=== PATIENT | female | born 1965 | race Caucasian/White ===

== ENCOUNTER → 2016-07-14 | Outpatient (CLI) | payer OTHER, BC ==
--- NOTE | 2016-07-14 16:41 | MR ---
EXAM DATE: 07/14/16 PATIENT'S AGE: 51 Patient: BUBBA ARTEAGA Facility: [place], [place] Site . Site : [id number] Study: MRI Spine Lumbar [id number]/[id number] 3:39:43 PM Ordering Physician: Dakotah Pavon Final Report: INDICATION: 51-year-old female with low back pain. Back pain right leg. TECHNIQUE: Sagittal and axial T1, sagittal axial T2 and sagittal STIR images were obtained. FINDINGS: There is grade 1 degenerative anterolisthesis at the L4-5 level. Alignment at other lumbar levels is normal. No compression fractures. No paraspinal mass. The distal spinal cord the conus medullaris appear normal. The conus terminates normally at the upper L2 level. At L5-S1 degenerative disk desiccation mild annular bulge and mild facet arthropathy without stenosis of the spinal canal or neural foramen. At L4-5 there is grade 1 spondylolisthesis. There is bilateral facet arthropathy with anterior facet spurs thickening of ligamentum flavum and edema within the facets and pedicles. There is a synovial cyst on the right that contributes to narrowing of the spinal canal moderate central stenosis and impingement of the right L5 nerve root in the lateral recess. Mild bilateral neural foraminal narrowing. At L3-4 degenerative disc desiccation mild annular bulge and small right foraminal disc protrusion. Mild to moderate bilateral facet arthropathy. No stenosis the spinal canal. Mild to moderate right-sided foraminal narrowing. No disc herniation or stenosis at L2-3, L1-2, T12-L1 or at T11-12. At T10-11 degenerative disk desiccation. For is minor posterior disc bulge without stenosis. IMPRESSION: 1. At L4-5 there is grade 1 spondylolisthesis with advanced facet arthropathy, moderate central stenosis and impingement of the right L5 nerve root in the lateral recess. A 4 mm synovial cyst on the right contributes to right L5 nerve impingement. 2. At L3-4 a shallow broad-based and repeat small right foraminal disc protrusion contacts the exiting right L3 nerve root. 3. Bilateral facet arthropathy at the lower 3 lumbar levels as described in detail. Dictated by Justin Sequeira MD @ 07/14/2016 4:27:03 PM Dictated by: Justin Sequeira MD @ 07/14/2016 16:27:17 (Electronic Signature) Report Signed by Proxy and Original Signed Document filed in the Medical Record. YESSENIA
== END ==
LOC: MW.CHPM 14:52
PROVIDERS: ATTEND Anesthesiology
DX: M54.9 Dorsalgia, unspecified (principal); M54.16 Radiculopathy, lumbar region; G89.4 Chronic pain syndrome; M43.16 Spondylolisthesis, lumbar region; M48.06 Spinal stenosis, lumbar region; M71.38 Other bursal cyst, other site; M51.26 Other intervertebral disc displacement, lumbar region
CPT/HCPCS: 72148; 72148-26

== ENCOUNTER → 2016-07-24 | Outpatient (CLI) | payer OTHER, BC | END | disposition home or self-care (01) | LOC: MW.CHIM 14:20 | PROVIDERS: ATTEND Internal Medicine | DX: R74.8 Abnormal levels of other serum enzymes (principal) | CPT/HCPCS: 36415; 80076; 82140; 82977; 85025; 85610; 85730 ==

== ENCOUNTER → 2016-07-28 | Outpatient (CLI) | payer OTHER, BC | LOC: MW.CHIM 15:07 | PROVIDERS: ATTEND Internal Medicine | DX: R74.8 Abnormal levels of other serum enzymes (principal) | CPT/HCPCS: 36415; 80076; 82140; 82977; 85025; 85610; 85730 ==

== ENCOUNTER → 2016-08-14 | Outpatient (CLI) | payer OTHER, BC ==
[2016-08-14 13:38] LABS: CHLORIDE,CL 105 mmol/L (98-110); SODIUM,NA 142 mmol/L (136-146)
== END ==
LOC: MW.CHIM 12:54
PROVIDERS: ATTEND Internal Medicine
DX: M54.9 Dorsalgia, unspecified (principal); R74.8 Abnormal levels of other serum enzymes; K59.00 Constipation, unspecified
CPT/HCPCS: 36415; 80053; 82977; 85025

== ENCOUNTER 2016-12-25 08:32 | Day surgery (SDC) | payer OTHER, BC ==
[~2016-12-25 08:32] MED LIST: Lactated Ringers 1,000 ML IV SCH; Midazolam 1 MG/ML 2 ML SDV ONE; Propofol 200 MG/20 ML SDV ONE; Sodium Chloride 0.9% 10 ML Syringe FLUSH PRN; Sodium Chloride 0.9% 2.5 ML Syringe FLUSH PRN
--- NOTE | 2016-12-25 09:09 | PCM.PREANE ---
Preanesthetic Assessment - Anesthesia/Transfusion/Family Hx Anesthesia History: Prior Anesthesia Reaction Other Type of Anesthesia Reaction Comment: medically induced hepatitis from anesthesia Family History of Anesthesia Reaction: No Transfusion History: No Prior Transfusion(s) Intubation History: Unknown - Review of Systems General: No Symptoms Pulmonary: No Symptoms Cardiovascular: No Symptoms Gastrointestinal: No Symptoms, Other (screeming colonoscopy) Neurological: No Symptoms Other: Reports: None - Physical Assessment NPO Status Date: 12/24/16 NPO Status Time: 22:30 O2 Sat by Pulse Oximetry: 97 Respiratory Rate: 16 Vital Signs: Last Vital Signs Temp 36.8 C 12/25/16 08:55 Pulse 95 12/25/16 08:55 Resp 16 12/25/16 08:55 BP 128/86 12/25/16 08:55 Pulse Ox 97 12/25/16 08:55 Height: 1.68 m Weight: 81.193 kg ASA Class: 2 Mental Status: Alert & Oriented x3 Airway Class: Mallampati = 2 Dentition: Reports: Normal Dentition, Partial (upper) Thyro-Mental Finger Breadths: 3 Mouth Opening Finger Breadths: 3 ROM/Head Extension: Full Lungs: Clear to Auscultation, Normal Respiratory Effort Cardiovascular: Regular Rate, Regular Rhythm - Allergies Allergies/Adverse Reactions: Allergies Allergy/AdvReac Type Severity Reaction Status Date / Time Penicillins Allergy Rash Verified 12/22/16 13:34 - Blood Blood Available: No - Anesthesia Plan Pre-Op Medication Ordered: None - Acknowledgements Anesthesia Type Planned: MAC Pt an Appropriate Candidate for the Planned Anesthesia: Yes Alternatives and Risks of Anesthesia Discussed w Pt/Guardian: Yes Pt/Guardian Understands and Agrees with Anesthesia Plan: Yes PreAnesthesia Questionnaire Other HEENT History: wears glasses, has upper partial removable denture Cardiovascular History: Reports: Blood Clots/VTE/DVT Other Cardiovascular History: 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, no anticoagulant therapy Respiratory History: Reports: COPD Other Respiratory History: has not been diagnosed with COPD but says she thinks she has it Gastrointestinal History: Reports: Chronic Constipation, GERD, Hepatitis Other Gastrointestinal History: 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, cleared now Genitourinary History: Reports: None Other OB/BYN History: Pt still has both ovaries Musculoskeletal History: Reports: Back Pain, Chronic (better after back surgery , chronic opioid use), RA Other Neuro History: hx of motion sickness and restless leg syndrome - Past Surgical History Head Surgeries/Procedures: Reports: None HEENT Surgical History: Reports: Tonsillectomy GI Surgical History: Reports: Cholecystectomy Female Surgical History: Reports: Tubal Ligation Neurological Surgical History: Reports: Spinal Fusion Musculoskeletal Surgical History: Reports: Other (See Below) Other Musculoskeletal Surgeries/Procedures:: lumbar spinal fusion - SUBSTANCE USE Smoking Status *Q: Current Every Day Smoker (1/2 ppd) Tobacco Use Within Last Twelve Months: Cigarettes Days Per Week of Alcohol Use: 0 Number of Drinks Per Day: 0 Total Drinks Per Week: 0 Recreational Drug Use History: No Recreational Drug Type: Reports: Marijuana/Hashish - HOME MEDS Home Medications: Home Meds Venlafaxine HCl [Venlafaxine ER] 75 mg PO DAILY 06/19/14 [History] Lansoprazole [Prevacid] 30 mg PO QAM 12/02/15 [History] Albuterol Sulfate [Proair Hfa] 1 - 2 puff INH Q4HR PRN 12/22/16 [History] Carisoprodol [Soma] 350 mg PO Q6H PRN 12/22/16 [History] Docusate Sodium [Colace] 100 mg PO DAILY 12/22/16 [History] Tiotropium Br/Olodaterol HCl [Stiolto Respimat Inhal [place]] 2 puff INH QAM 12/22 [History] oxyCODONE 5 - 15 mg PO Q4H PRN 12/22/16 [History] - CURRENT (IN HOUSE) MEDS Current Meds: Current Medications Lactated Ringer's (Ringers, Lactated) 1,000 mls @ 125 mls/hr IV ASDIRECTED RICK Last Admin: 12/25/16 08:56 Dose: 125 mls/hr Sodium Chloride (Saline Flush) 10 ml FLUSH ASDIRECTED PRN PRN Reason: Keep Vein Open Sodium Chloride (Saline Flush) 2.5 ml FLUSH ASDIRECTED PRN PRN Reason: Keep Vein Open Discontinued Medications Lidocaine HCl (Xylocaine-Mpf 1%) Confirm Administered Dose 5 ml .ROUTE .STK-MED ONE Stop: 12/25/16 07:18 Midazolam HCl (Versed 1 Mg/Ml) Confirm Administered Dose 2 mg .ROUTE .STK-MED ONE Stop: 12/25/16 07:18 Propofol (Diprivan 20 Ml) Confirm Administered Dose 400 mg .ROUTE .[facility] Stop: 12/25/16 07:18
--- NOTE | 2016-12-25 10:37 | PCM.OPNOTE ---
- General Post-Op/Procedure Note Date of Surgery/Procedure: 12/25/16 Operative Procedure(s): Colonoscopy Findings: Normal colon Pre Op Diagnosis: Colonoscopy Post-Op Diagnosis: normal colon Anesthesia Technique: MAC Primary Surgeon: Esther Peres Condition: Good
[2016-12-25 11:00] VITALS: BP 132/89
--- NOTE | 2016-12-25 19:04 | OR ---
SURGEON: REBEKAH FERGUSON MD DATE OF PROCEDURE: 12/25/2016 PREOPERATIVE DIAGNOSIS: Screening colonoscopy. POSTOPERATIVE DIAGNOSIS: Screening colonoscopy. PROCEDURE PERFORMED: Screening colonoscopy. INSTRUMENT USED: Olympus colonoscope. ANESTHESIA: MAC. EXTENT OF EXAM: To the cecum. PREPARATION: Fair. LIMITATIONS: None. INDICATION FOR EXAMINATION: The patient is a 51-year-old female, who presents for first time screening colonoscopy. We discussed the procedure, expected perioperative course, and risks including bleeding, infection, or damage to surrounding structures including perforation. The patient verbalized understanding and wishes to proceed. PROCEDURE IN DETAIL: The patient was brought to the endoscopy suite and placed in left lateral decubitus position. A time-out was completed verifying the patient's name, age, date of , allergies, and procedure to be performed. A well monitored anesthesia care was induced and continuous oxygen was provided via nasal cannula throughout the procedure. After adequate sedation was achieved, a digital rectal exam was performed. This examination was within normal limits. A well- lubricated colonoscope was then inserted in the rectum and advanced under direct visualization to the level of the cecum. The cecum was identified by both visual and anatomic landmarks. A photograph was taken of the cecal cap, however, I was unable to retroflex the scope within the cecum. The scope was then straightened out and fully withdrawn while examining the color, texture, anatomy, and integrity of the mucosa from the cecum to the anal canal. The findings were consistent with normal colonic mucosa. The scope was then brought into the rectum and retroflexed to allow visualization of the anal canal opening. This appeared normal and a photograph was taken. The scope was then straightened out and removed from the patient. The cecum to anus time was 8 minutes. The patient was taken to PACU in stable condition. ENDOSCOPIC DIAGNOSIS: Normal colonoscopy. RECOMMENDATIONS: Follow up in clinic in 10 years. OLIVERIO / STACY /[id number]
== END 2016-12-25 11:05 | disposition home or self-care (01) ==
LOC: MW.SDS 08:32
PROVIDERS: ATTEND Surgery
PROC: 0DJD8ZZ Inspection of Lower Intestinal Tract, Via Natural or Artificial Opening Endoscopic (ICD-10-PCS; principal; 2016-12-25)
DX: Z12.11 Encounter for screening for malignant neoplasm of colon (principal); D64.9 Anemia, unspecified; M54.9 Dorsalgia, unspecified; G89.4 Chronic pain syndrome; K59.00 Constipation, unspecified; K21.9 Gastro-esophageal reflux disease without esophagitis; J06.9 Acute upper respiratory infection, unspecified; Z88.0 Allergy status to penicillin; Z79.899 Other long term (current) drug therapy; Z79.51 Long term (current) use of inhaled steroids; Z90.89 Acquired absence of other organs; Z98.51 Tubal ligation status; Z98.890 Other specified postprocedural states; F17.210 Nicotine dependence, cigarettes, uncomplicated
CPT/HCPCS: 45378; J2250; J7120; 00810; J2704

== ENCOUNTER 2018-09-14 12:02 | Day surgery (SDC) | payer BC, OTHER ==
[~2018-09-14 12:02] MED LIST changes: +Betamethasone Acetate/Betamethasone Sod Phosphate 30 MG/5 ML MDV ONE; +Iopamidol 200-M 10 ML vial ITHECAL ONE; -Lactated Ringers 1,000 ML IV SCH; +Lidocaine 2% 5 ML SDV ONE; -Midazolam 1 MG/ML 2 ML SDV ONE; -Propofol 200 MG/20 ML SDV ONE; +Ropivacaine 0.5% 5 MG/ML 30 ML SDV ONE; -Sodium Chloride 0.9% 10 ML Syringe FLUSH PRN; -Sodium Chloride 0.9% 2.5 ML Syringe FLUSH PRN
--- NOTE | 2018-09-14 19:59 | OR ---
SURGEON: Savanah Claire D.O. DATE OF PROCEDURE: 09/14/2018 PRIMARY SURGEON: Savanah Claire D.O. OPERATING ROOM STAFF PRESENT: 1. RT Curt. 2. Briana Sena RN. 3. Carlos Crystal RN. 4. Aroldo Umana RN. WOUND CLASS: I. PREOPERATIVE DIAGNOSES: 1. Failed back surgery syndrome. 2. Chronic low back pain. 3. Lumbar radiculopathy. POSTOPERATIVE DIAGNOSES: 1. Failed back surgery syndrome. 2. Chronic low back pain. 3. Lumbar radiculopathy. PROCEDURE PERFORMED: 1. Caudal epidural steroid injection. 2. Fluoroscopic guidance for needle placement. 3. Local with oral Valium for sedation. SCREENING QUESTIONS: The patient answered "no" to all of the following questions: 1. Are you allergic to latex? 2. Do you have a bleeding disorder? 3. Do you have any current local or systemic infections? 4. Are you taking any anti-inflammatories or blood thinners? 5. Do you have any joint replacements, heart valve replacements, or a pacemaker? DESCRIPTION OF PROCEDURE: The patient had the procedure thoroughly explained including all possible risks, benefits and alternatives. Consent was signed in my clinic indicating understanding and willingness to proceed. The patient presented to [facility] and was escorted to the dressing room to disrobe and change into a hospital gown. Preoperative vital signs were taken and stable. The patient reported that Valium was taken prior to the procedure. The patient was brought back to the procedure room and placed in the prone position on the procedure room table. A pillow was placed under the hips in order to flatten the lumbar lordosis. The back was prepped with ChloraPrep and sterilely draped. All personnel in the operating room were dressed in appropriate attire including surgical scrubs, head and shoe covers. This was to ensure sterility while in the treatment room. During the time fluoroscopy was in use, all personnel in the operating room wore lead gillette with thyroid collars. Sterile technique was used throughout the procedure. The patient was awake and conversant throughout the procedure. There was no evidence of infection at the site of needle insertion. Skeletal landmarks were identified under fluoroscopy for the caudal epidural. Skin was anesthetized with 2% lidocaine with a sterile 27-gauge 1.5 inch needle. Then a 20-gauge Tuohy epidural needle was placed in the epidural space with loss of resistance technique under fluoroscopic guidance. No heme, cerebrospinal fluid, or paresthesias were noted. Isovue-200 contrast dye was injected in 0.2 cubic centimeter increments and seen to outline the epidural space in both AP and lateral views. There was no intravascular flow pattern observed under live fluoroscopy. Then 12 milligrams of Celestone and 3cc 0.5% ropivicaine was slowly injected after negative aspiration. The patient tolerated the procedure well. Vital signs were stable during and after the procedure. The staff escorted the patient to the recovery area and the patient was released in stable condition after a brief stay in the recovery room monitored by the nurse. The patient was given both oral and written discharge and follow up instructions with recommendation to follow up given for 2-3 weeks. The patient voiced understanding including understanding of those signs and symptoms that would require emergency care. The patient knows how to contact the office if there are any additional problems or questions in the meantime. PREOPERATIVE PAIN: /10. POSTOPERATIVE PAIN: 04/15. FOLLOWUP: In the Pain Clinic in 3 weeks. SHIRLEY / STACY /[id number] YESSENIA
== END 2018-09-14 13:48 | disposition home or self-care (01) ==
LOC: MW.SDS 12:02
PROVIDERS: ATTEND Anesthesiology
DX: G89.29 Other chronic pain (principal); M54.5 Low back pain; M51.16 Intervertebral disc disorders with radiculopathy, lumbar region; K21.9 Gastro-esophageal reflux disease without esophagitis; F17.210 Nicotine dependence, cigarettes, uncomplicated; G25.81 Restless legs syndrome; Z88.0 Allergy status to penicillin; Z98.1 Arthrodesis status; Z79.1 Long term (current) use of non-steroidal anti-inflammatories (NSAID); Z79.899 Other long term (current) drug therapy
CPT/HCPCS: 62323; J0702; J2795; Q9966; J2001

== ENCOUNTER 2018-10-10 09:25 | Emergency (ER) | payer OTHER ==
[2018-10-10] MEDS ORDERED: Morphine 4 MG/ML Syringe IVPUSH ONE (09:40)
[2018-10-10] MEDS ORDERED: Ondansetron 4 MG/2 ML SDV IVPUSH ONE (09:40)
[2018-10-10] MEDS ORDERED: Sodium Chloride 0.9% 1,000 ML IV ONE (09:40)
[2018-10-10] MEDS ORDERED: Sodium Chloride 0.9% 2.5 ML Syringe FLUSH PRN (09:40)
[2018-10-10] MEDS ORDERED: Sodium Chloride 0.9% 10 ML Syringe FLUSH PRN (09:40)
--- NOTE | 2018-10-10 09:46 | EDM.PDOC ---
ED HPI GENERAL MEDICAL PROBLEM - General Chief Complaint: Abdominal Pain Stated Complaint: STOMACH PAINS Time Seen by Provider: 10/10/18 09:26 Source of Information: Reports: Patient History Limitations: Reports: No Limitations - History of Present Illness INITIAL COMMENTS - FREE TEXT/NARRATIVE: History of present illness: []She has had 4 days of epigastric pain radiating to her left lower quadrant that is worsening. Patient has been having some vomiting and decreased amount of stool that is black. She has known acid reflux disease and takes omeprazole. She denies any fevers, chills or any similar pain in the past. Review of systems: As per history of present illness and below otherwise all systems reviewed and negative. Past medical history: As per history of present illness and as reviewed below otherwise noncontributory. Surgical history: As per history of present illness and as reviewed below otherwise noncontributory. Social history: No reported history of drug or alcohol abuse. Family history: As per history of present illness and as reviewed below otherwise noncontributory. Physical exam: General: Well developed, well nourished in NAD HEENT: Atraumatic, normocephalic, pupils reactive, negative for conjunctival pallor or scleral icterus, mucous membranes moist, throat clear, neck supple, nontender, trachea midline. Lungs: Clear to auscultation, breath sounds equal bilaterally, chest nontender. Heart: S1S2, regular, negative for clicks, rubs, or JVD. Abdomen: NABS, Soft, nondistended, nontender. Negative for masses or hepatosplenomegaly. Negative for costovertebral tenderness. Pelvis: Stable nontender. Genitourinary: Deferred. Rectal: Deferred. Extremities: Atraumatic, negative for cords or calf pain. Neurovascular unremarkable. Neuro: Awake, alert, oriented. Cranial nerves II through XII unremarkable. Cerebellum unremarkable. Motor and sensory unremarkable throughout. Exam nonfocal. Skin:warm and dry Diagnostics: CBC, chemistry, lipase Therapeutics: IV hydration, morphine, Zofran, dilaudid ED Course: stable Impression: GERD Prescriptions: none Plan: follow up with general surgery Definitive disposition and diagnosis as appropriate pending reevaluation and review of above. 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, no anticoagulant therapy Respiratory History: Reports: COPD Other Respiratory History: has not been diagnosed with COPD but says she thinks she has it Gastrointestinal History: Reports: Chronic Constipation, GERD, Hepatitis Other Gastrointestinal History: 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, cleared now Genitourinary History: Reports: None 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 Musculoskeletal History: Reports: Back Pain, Chronic, RA Other Neuro History: hx of motion sickness and restless leg syndrome - Infectious Disease History Infectious Disease History: Reports: Chicken Pox, Measles, Scarlet Fever - Past Surgical History Head Surgeries/Procedures: Reports: None HEENT Surgical History: Reports: Tonsillectomy GI Surgical History: Reports: Cholecystectomy Female Surgical History: Reports: Hysterectomy, Tubal Ligation Neurological Surgical History: Reports: Spinal Fusion Musculoskeletal Surgical History: Reports: Other (See Below) Other Musculoskeletal Surgeries/Procedures:: lumbar spinal fusion Social & Family History - Family History Family Medical History: Noncontributory - Tobacco Use Smoking Status *Q: Current Every Day Smoker Years of Tobacco use: 35 Packs/Tins Daily: 1 - Recreational Drug Use Recreational Drug Use: Yes Drug Use in Last 12 Months: Yes Recreational Drug Type: Reports: Marijuana/Hashish Recreational Drug Use Frequency: Daily ED ROS GENERAL - Review of Systems Review Of Systems: See Below ED EXAM, GI/ABD - Physical Exam Exam: See Below Course - Vital Signs Last Recorded V/S: Last Vital Signs Temp 96.8 F 10/10/18 09:36 Pulse 89 10/10/18 10:58 Resp 18 10/10/18 09:36 BP 111/72 10/10/18 10:58 Pulse Ox 99 10/10/18 10:58 - Orders/Labs/Meds Orders: Active Orders 24 hr Category Date Time Status Sodium Chloride 0.9% [Saline Flush] Med 10/10/18 09:40 Active 10 ml FLUSH ASDIRECTED PRN Sodium Chloride 0.9% [Saline Flush] Med 10/10/18 09:40 Active 2.5 ml FLUSH ASDIRECTED PRN Saline Lock Insert [OM.PC] Stat Oth 10/10/18 09:39 Ordered Medication Orders Sodium Chloride (Saline Flush) 10 ml FLUSH ASDIRECTED PRN PRN Reason: Keep Vein Open Last Admin: 10/10/18 09:52 Dose: 10 ml Sodium Chloride (Saline Flush) 2.5 ml FLUSH ASDIRECTED PRN PRN Reason: Keep Vein Open Last Admin: 10/10/18 09:52 Dose: 2.5 ml Labs: Laboratory Tests 10/10/18 10/10/18 10/10/18 Range/Units 09:49 09:49 09:57 WBC 8.18 (4.0-11.0) K/uL RBC 5.22 (4.30-5.90) M/uL Hgb 11.0 L (12.0-16.0) g/dL Hct 37.1 (36.0-46.0) % MCV 71.1 L (80.0-98.0) fL MCH 21.1 L (27.0-32.0) pg MCHC 29.6 L (31.0-37.0) g/dL RDW Std Deviation 48.6 (28.0-62.0) fl RDW Coeff of Rohan 19 H (11.0-15.0) % Plt Count 452 H (150-400) K/uL MPV 8.70 (7.40-12.00) fL Neut % (Auto) 68.5 (48.0-80.0) % Lymph % (Auto) 22.9 (16.0-40.0) % Bailey % (Auto) 6.6 (0.0-15.0) % Eos % (Auto) 1.6 (0.0-7.0) % Baso % (Auto) 0.4 (0.0-1.5) % Neut # (Auto) 5.6 (1.4-5.7) K/uL Lymph # (Auto) 1.9 (0.6-2.4) K/uL Bailey # (Auto) 0.5 (0.0-0.8) K/uL Eos # (Auto) 0.1 (0.0-0.7) K/uL Baso # (Auto) 0.0 (0.0-0.1) K/uL Nucleated RBC % 0.0 /100WBC Nucleated RBCs # 0 K/uL Sodium 139 (136-145) mmol/L Potassium 3.9 (3.5-5.1) mmol/L Chloride 103 (98-107) mmol/L Carbon Dioxide 25.6 (21.0-32.0) mmol/L BUN 10 (7.0-18.0) mg/dL Creatinine 0.7 (0.6-1.0) mg/dL Est Cr Clr Drug Dosing 84.59 mL/min Estimated GFR (MDRD) > 60.0 ml/min Glucose 140 H (74-106) mg/dL Calcium 9.1 (8.5-10.1) mg/dL Total Bilirubin 0.4 (0.2-1.0) mg/dL AST 24 (15-37) IU/L ALT 16 (14-63) IU/L Alkaline Phosphatase 68 (46-116) U/L Total Protein 7.5 (6.4-8.2) g/dL Albumin 3.3 L (3.4-5.0) g/dL Globulin 4.2 H (2.6-4.0) g/dL Albumin/Globulin Ratio 0.8 L (0.9-1.6) Lipase 92 (73-393) U/L Urine Color YELLOW Urine Appearance CLEAR Urine pH 7.5 (5.0-8.0) Ur Specific [place] 1.015 (1.001-1.035) Urine Protein TRACE H (NEGATIVE) mg/dL Urine Glucose (UA) NEGATIVE (NEGATIVE) mg/dL Urine Ketones NEGATIVE (NEGATIVE) mg/dL Urine Occult Blood SMALL H (NEGATIVE) Urine Nitrite NEGATIVE (NEGATIVE) Urine Bilirubin NEGATIVE (NEGATIVE) Urine Urobilinogen 0.2 (<2.0) EU/dL Ur Leukocyte Esterase NEGATIVE (NEGATIVE) Urine RBC 1-4 (0-2/HPF) Urine WBC 0-1 (0-5/HPF) Ur Epithelial Cells NOT SEEN (NONE-FEW) Urine Bacteria RARE (NEGATIVE) Meds: Medications Generic Name Dose Route Start Last Admin Trade Name Salo PRN Reason Stop Dose Admin Sodium Chloride 10 ml 10/10/18 09:40 10/10/18 09:52 Saline Flush FLUSH 10 ml ASDIRECTED PRN Administration Keep Vein Open Sodium Chloride 2.5 ml 10/10/18 09:40 10/10/18 09:52 Saline Flush FLUSH 2.5 ml ASDIRECTED PRN Administration Keep Vein Open Discontinued Medications Generic Name Dose Route Start Last Admin Trade Name Salo PRN Reason Stop Dose Admin Al Hydroxide/Mg Hydroxide 15 0 ml 10/10/18 10:20 10/10/18 10:33 ml/ Lidocaine HCl 5 ml PO 10/10/18 10:21 1 each ONETIME ONE Administration Hydromorphone HCl 0.5 mg 10/10/18 11:11 10/10/18 11:20 Dilaudid IVPUSH 10/10/18 11:12 0.5 mg ONETIME ONE Administration Sodium Chloride 1,000 mls @ 999 mls/hr 10/10/18 09:40 10/10/18 09:52 Normal Saline IV 10/10/18 10:40 999 mls/hr .Bolus ONE Administration Morphine Sulfate 4 mg 10/10/18 09:40 10/10/18 09:52 Morphine IVPUSH 10/10/18 09:41 4 mg ONETIME ONE Administration Ondansetron HCl 4 mg 10/10/18 09:40 10/10/18 09:52 Zofran IVPUSH 10/10/18 09:41 4 mg ONETIME ONE Administration Departure - Departure Time of Disposition: 11:28 Disposition: Home, Self-Care 01 Condition: Good Clinical Impression: GERD (gastroesophageal reflux disease) Qualifiers: Esophagitis presence: with esophagitis Qualified Code(s): K21.0 - Gastro- esophageal reflux disease with esophagitis - Discharge Information *PRESCRIPTION DRUG MONITORING PROGRAM REVIEWED*: No *COPY OF PRESCRIPTION DRUG MONITORING REPORT IN PATIENT MARION: No Referrals: PCP,None [Primary Care Provider] - Forms: ED Department Discharge Additional Instructions: The following information is given to patients seen in the emergency department who are being discharged to home. This information is to outline your options for follow-up care. We provide all patients seen in our emergency department with a follow-up referral. The need for follow-up, as well as the timing and circumstances, are variable depending upon the specifics of your emergency department visit. If you don't have a primary care physician on staff, we will provide you with a referral. We always advise you to contact your personal physician following an emergency department visit to inform them of the circumstance of the visit and for follow-up with them and/or the need for any referrals to a consulting specialist. The emergency department will also refer you to a specialist when appropriate. This referral assures that you have the opportunity for follow-up care with a specialist. All of these measure are taken in an effort to provide you with optimal care, which includes your follow-up. Under all circumstances we always encourage you to contact your private physician who remains a resource for coordinating your care. When calling for follow-up care, please make the office aware that this follow-up is from your recent emergency room visit. If for any reason you are refused follow-up, please contact the [facility] Emergency Department at and asked to speak to the emergency department charge nurse. Increase omeprazole to twice a day, stay away from alcohol and caffeine, follow- up with general surgery [facility] - General Surgery Professional Building [address] [place] [address], [address] [place] [address] - My Orders Last 24 Hours: My Active Orders 10/10/18 09:39 Saline Lock Insert [OM.PC] Stat 10/10/18 09:40 Sodium Chloride 0.9% [Saline Flush] 10 ml FLUSH ASDIRECTED PRN Sodium Chloride 0.9% [Saline Flush] 2.5 ml FLUSH ASDIRECTED PRN - Assessment/Plan Last 24 Hours: My Active Orders 10/10/18 09:39 Saline Lock Insert [OM.PC] Stat 10/10/18 09:40 Sodium Chloride 0.9% [Saline Flush] 10 ml FLUSH ASDIRECTED PRN Sodium Chloride 0.9% [Saline Flush] 2.5 ml FLUSH ASDIRECTED PRN
[2018-10-10 10:15] LABS: CHLORIDE,CL 103 mmol/L (98-107); SODIUM,NA 139 mmol/L (136-145)
[2018-10-10] MEDS ORDERED: Alum Hydrox/Mag Hydrox/Simeth 15 ML, Lidocaine 2% 5 ML PO ONE ×2 (10:20)
[2018-10-10] MEDS ORDERED: HYDROmorphone 2 MG/ML Syringe IVPUSH ONE (11:11)
[2018-10-10 11:40] VITALS: BP 108/65
== END 2018-10-10 11:40 | disposition home or self-care (01) ==
LOC: MW.ED 09:25
DX: K21.0 Gastro-esophageal reflux disease with esophagitis (principal); M06.9 Rheumatoid arthritis, unspecified; F17.210 Nicotine dependence, cigarettes, uncomplicated; Z79.899 Other long term (current) drug therapy; Z90.49 Acquired absence of other specified parts of digestive tract; Z98.890 Other specified postprocedural states; Z98.51 Tubal ligation status; Z98.1 Arthrodesis status; Z90.710 Acquired absence of both cervix and uterus; Z88.0 Allergy status to penicillin
CPT/HCPCS: 36415; 80053; 81001; 83690; 85025; 96361; 96374; 96375; 99284; A9270; J1170; J2270; J2405; J7040

== ENCOUNTER 2018-10-10 22:36 | Emergency (ER) | payer OTHER ==
[2018-10-10] MEDS ORDERED: Ondansetron 4 MG/2 ML SDV IVPUSH ONE (23:09)
[2018-10-10] MEDS ORDERED: Sodium Chloride 0.9% 1,000 ML IV ONE (23:09)
[2018-10-10] MEDS ORDERED: Ketorolac 30 MG/ML SDV IVPUSH ONE (23:12)
--- NOTE | 2018-10-10 23:16 | EDM.PDOC ---
<Kassy Templeton - Last Filed: 10/11/18 00:00> ED HPI GENERAL MEDICAL PROBLEM - General Chief Complaint: Abdominal Pain Stated Complaint: ABDOMINAL PAIN Time Seen by Provider: 10/10/18 23:03 Source of Information: Reports: Patient History Limitations: Reports: No Limitations - History of Present Illness INITIAL COMMENTS - FREE TEXT/NARRATIVE: HISTORY AND PHYSICAL: History of present illness: Patient is a 53-year-old female presents to the ED today for left upper and left lower quadrant pain that has slowly worsened over the past 2 days. Patient was seen in the ED earlier today and discharged. Patient states that since discharge the pain has increased in severity. She rates her pain a 10 out of 10. She states she has felt nauseous but eats some soup after discharge. Patient denies any new symptoms. Patient states she hasn't taken anything new for her symptoms or discomfort. Patient has a history of cholecystectomy and hysterectomy but denies any other abdominal surgeries. Patient states a few days ago she did have episodes of vomiting but today has felt nauseous all day. Patient denies fever, chills, chest pain, shortness of breath, or cough. Denies headache, neck stiff ness, change in vision, syncope, or near syncope. Denies diarrhea, constipation, or dysuria. Has not noted any blood in urine or stool. Review of systems: As per history of present illness and below otherwise all systems reviewed and negative. Past medical history: As per history of present illness and as reviewed below otherwise noncontributory. Surgical history: As per history of present illness and as reviewed below otherwise noncontributory. Social history: See social history for further information Family history: As per history of present illness and as reviewed below otherwise noncontributory. Physical exam: General: Patient is alert, oriented, and in no acute distress. Patient laying comfortably on exam table but is tearful on exam. HEENT: Atraumatic, normocephalic, pupils equal and reactive bilaterally, negative for conjunctival pallor or scleral icterus, mucous membranes dry, TMs normal bilaterally, throat clear, neck supple, nontender, trachea midline. No drooling or trismus noted. No meningeal signs. No hot potato voice noted. Lungs: Clear to auscultation, breath sounds equal bilaterally, chest nontender. Heart: S1S2, regular rate and rhythm without overt murmur Abdomen: Exam of abdomen is limited due to pain. Severe pain with palpation of the left upper and left lower quadrant with guarding. Soft, nondistended. Negative for masses or hepatosplenomegaly. Negative for costovertebral tenderness. Pelvis: Stable nontender. Genitourinary: Deferred. Rectal: Deferred. Skin: Intact, warm, dry. No lesions or rashes noted. Extremities: Atraumatic, negative for cords or calf pain. Neurovascular unremarkable. Neuro: Awake, alert, oriented. Cranial nerves II through XII unremarkable. Cerebellum unremarkable. Motor and sensory unremarkable throughout. Exam nonfocal. Notes: Dr. Camacho has assumed care of patient and will follow remaining diagnostics and disposition. Diagnostics: CBC, CMP, UA, EKG, abdominal pelvic CT, lipase Therapeutics: Saline, Zofran, Toradol Prescription: Impression: Left sided abdominal pain, unspecified Plan: Definitive disposition and diagnosis as appropriate pending reevaluation and review of above. 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, no anticoagulant therapy Respiratory History: Reports: COPD Other Respiratory History: has not been diagnosed with COPD but says she thinks she has it Gastrointestinal History: Reports: Chronic Constipation, GERD, Hepatitis Other Gastrointestinal History: 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, cleared now Genitourinary History: Reports: None 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 Musculoskeletal History: Reports: Back Pain, Chronic, RA Other Neuro History: hx of motion sickness and restless leg syndrome - Infectious Disease History Infectious Disease History: Reports: Chicken Pox, Measles, Scarlet Fever - Past Surgical History Head Surgeries/Procedures: Reports: None HEENT Surgical History: Reports: Tonsillectomy GI Surgical History: Reports: Cholecystectomy Female Surgical History: Reports: Hysterectomy, Tubal Ligation Neurological Surgical History: Reports: Spinal Fusion Musculoskeletal Surgical History: Reports: Other (See Below) Other Musculoskeletal Surgeries/Procedures:: lumbar spinal fusion Social & Family History - Family History Family Medical History: Noncontributory - Tobacco Use Smoking Status *Q: Current Every Day Smoker Years of Tobacco use: 30 Packs/Tins Daily: 1 - Recreational Drug Use Recreational Drug Use: No ED ROS GENERAL - Review of Systems Review Of Systems: ROS reveals no pertinent complaints other than HPI. ED EXAM, GENERAL - Physical Exam Exam: See Below (see dictation) Course - Vital Signs Last Recorded V/S: Last Vital Signs Temp 36.4 C 10/10/18 22:36 Pulse 96 10/10/18 23:45 Resp 18 10/10/18 23:45 BP 145/102 H 10/10/18 23:45 Pulse Ox 94 L 10/10/18 23:45 - Orders/Labs/Meds Orders: Active Orders 24 hr Category Date Time Status Communication Order [RC] STAT Care 10/11/18 00:48 Ordered EKG Documentation Completion [RC] STAT Care 10/10/18 23:09 Active CULTURE URINE [RM] Stat Lab 10/11/18 00:49 Ordered Labs: Laboratory Tests 10/10/18 10/10/18 10/11/18 Range/Units 23:10 23:10 00:01 WBC 10.47 (4.0-11.0) K/uL RBC 4.72 (4.30-5.90) M/uL Hgb 10.0 L (12.0-16.0) g/dL Hct 33.8 L (36.0-46.0) % MCV 71.6 L (80.0-98.0) fL MCH 21.2 L (27.0-32.0) pg MCHC 29.6 L (31.0-37.0) g/dL RDW Std Deviation 49.2 (28.0-62.0) fl RDW Coeff of Rohan 19 H (11.0-15.0) % Plt Count 419 H (150-400) K/uL MPV 8.70 (7.40-12.00) fL Neut % (Auto) 64.1 (48.0-80.0) % Lymph % (Auto) 25.9 (16.0-40.0) % Gibson % (Auto) 8.4 (0.0-15.0) % Eos % (Auto) 1.4 (0.0-7.0) % Baso % (Auto) 0.2 (0.0-1.5) % Neut # (Auto) 6.7 H (1.4-5.7) K/uL Lymph # (Auto) 2.7 H (0.6-2.4) K/uL Gibson # (Auto) 0.9 H (0.0-0.8) K/uL Eos # (Auto) 0.2 (0.0-0.7) K/uL Baso # (Auto) 0.0 (0.0-0.1) K/uL Nucleated RBC % 0.0 /100WBC Nucleated RBCs # 0 K/uL Sodium 142 (136-145) mmol/L Potassium 3.6 (3.5-5.1) mmol/L Chloride 104 (98-107) mmol/L Carbon Dioxide 26.6 (21.0-32.0) mmol/L BUN 18 (7.0-18.0) mg/dL Creatinine 0.9 (0.6-1.0) mg/dL Est Cr Clr Drug Dosing 65.80 mL/min Estimated GFR (MDRD) > 60.0 ml/min Glucose 135 H (74-106) mg/dL Calcium 8.8 (8.5-10.1) mg/dL Total Bilirubin 0.2 (0.2-1.0) mg/dL AST 49 H (15-37) IU/L ALT 37 (14-63) IU/L Alkaline Phosphatase 124 H (46-116) U/L Total Protein 7.0 (6.4-8.2) g/dL Albumin 3.1 L (3.4-5.0) g/dL Globulin 3.9 (2.6-4.0) g/dL Albumin/Globulin Ratio 0.8 L (0.9-1.6) Lipase 147 (73-393) U/L Urine Color DARK YELLOW Urine Appearance SLT CLOUDY Urine pH 5.5 (5.0-8.0) Ur Specific [place] 1.020 (1.001-1.035) Urine Protein TRACE H (NEGATIVE) mg/dL Urine Glucose (UA) NEGATIVE (NEGATIVE) mg/dL Urine Ketones NEGATIVE (NEGATIVE) mg/dL Urine Occult Blood LARGE H (NEGATIVE) Urine Nitrite NEGATIVE (NEGATIVE) Urine Bilirubin NEGATIVE (NEGATIVE) Urine Urobilinogen 0.2 (<2.0) EU/dL Ur Leukocyte Esterase NEGATIVE (NEGATIVE) Urine RBC 20-25 (0-2/HPF) Urine WBC 1-4 (0-5/HPF) Ur Epithelial Cells FEW (NONE-FEW) Amorphous Sediment LIGHT (NEGATIVE) Urine Bacteria FEW (NEGATIVE) Urine Mucus LIGHT (NONE-MOD) Meds: Medications Discontinued Medications Generic Name Dose Route Start Last Admin Trade Name Freq PRN Reason Stop Dose Admin Hydromorphone HCl 1 mg 10/11/18 00:05 10/11/18 00:11 Dilaudid IVPUSH 10/11/18 00:06 1 mg ONETIME ONE Administration Sodium Chloride 1,000 mls @ 999 mls/hr 10/10/18 23:09 10/10/18 23:42 Normal Saline IV 10/11/18 00:09 999 mls/hr STAT ONE Administration Iopamidol 100 ml 10/10/18 23:20 10/10/18 23:37 Isovue-370 (76%) IVPUSH 10/10/18 23:21 100 ml ONETIME ONE Administration Ketorolac Tromethamine 30 mg 10/10/18 23:12 10/10/18 23:44 Toradol IVPUSH 10/10/18 23:13 30 mg ONETIME ONE Administration Ondansetron HCl 4 mg 10/10/18 23:09 10/10/18 23:42 Zofran IVPUSH 10/10/18 23:10 4 mg ONETIME ONE Administration Tamsulosin HCl 0.4 mg 10/11/18 00:48 Flomax PO 10/11/18 00:49 ONETIME ONE Departure - Departure Disposition: Home, Self-Care 01 Clinical Impression: Ureterolithiasis, Hiatal hernia - Discharge Information Referrals: Brian Barnes MD [Primary Care Provider] - Forms: ED Department Discharge Additional Instructions: The following information is given to patients seen in the emergency department who are being discharged to home. This information is to outline your options for follow-up care. We provide all patients seen in our emergency department with a follow-up referral. The need for follow-up, as well as the timing and circumstances, are variable depending upon the specifics of your emergency department visit. If you don't have a primary care physician on staff, we will provide you with a referral. We always advise you to contact your personal physician following an emergency department visit to inform them of the circumstance of the visit and for follow-up with them and/or the need for any referrals to a consulting specialist. The emergency department will also refer you to a specialist when appropriate. This referral assures that you have the opportunity for followup care with a specialist. All of these measure are taken in an effort to provide you with optimal care, which includes your followup. Under all circumstances we always encourage you to contact your private physician who remains a resource for coordinating your care. When calling for followup care, please make the office aware that this follow-up is from your recent emergency room visit. If for any reason you are refused follow-up, please contact the [facility] emergency department at and ask to speak to the emergency department charge nurse. [facility] [address] [place] [id number] [facility]General [facility] Professional Building [address] [place] [id number] Push hydration and take medications as prescribed to him from [facility], Flomax on a daily basis, [place] as needed for pain management and Zofran as needed for nausea or vomiting. Please call and schedule a follow-up appointment , calling the clinic this morning, with our urologist Dr. Jaramillo for further evaluation and management of this kidney stone. Strain all urine. Please also call and schedule a follow-up appointment in our surgery clinic for further evaluation of your hiatal hernia, although this does not need to be done within this week. Return to ER as needed and as we discussed but especially if your pain is not being controlled, you have a fever, or you're unable to take fluids due to nausea and vomiting which is not controlled by your medications. - My Orders Last 24 Hours: My Active Orders 10/11/18 00:48 Communication Order [RC] STAT 10/11/18 00:49 CULTURE URINE [RM] Stat - Assessment/Plan Last 24 Hours: My Active Orders 10/11/18 00:48 Communication Order [RC] STAT 10/11/18 00:49 CULTURE URINE [RM] Stat <Becca Camacho - Last Filed: 10/11/18 00:52> ED HPI GENERAL MEDICAL PROBLEM - History of Present Illness INITIAL COMMENTS - FREE TEXT/NARRATIVE: This is Dr. Camacho dictating addendum note as I assumed care of this case at 12 midnight. The earlier ED visit was reviewed and the patient underwent labs interventions but no imaging. We are currently awaiting the CT scan results and the patient has not produced a urine sample at this point but she had a UA earlier with microscopic which unimpressive. Her labs on this ED visit have been reviewed by me. She has been given fluids Zofran Toradol and as she is still very uncomfortable in the ED we will give her a dose of Dilaudid, as this appears to have worked earlier for her pain She is much more comfortable in the ED and I discussed with her and her significant other at bedside all testing results on the CAT scan. She is aware that she has a large hiatal hernia that she mentally needs to be aware of but that she can follow-up with our surgery clinic and hepatic steatosis. The cause of her pain is a 6.6 proximal left ureteral stone with moderate [place]. Her urine is negative both earlier today and on this visit so I will not give antibiotics but I will give a dose of Flomax here in the ED as well as urine strainers and send the patient home on Flomax and pain meds and Zofran. She is aware of the reasons to return to the ED and the need to contact urology for follow-up. This case was discussed with Dr. Jaramillo at 0045 AM and he is aware of the case and wants the patient to call his clinic in the morning to schedule follow-up appointment with him. Impression: Left ureterolithiasis, incidental large hiatal hernia asymptomatic ED ROS GENERAL - Review of Systems Review Of Systems: ROS reveals no pertinent complaints other than HPI. ED EXAM, GENERAL - Physical Exam Exam: See Below Departure - Departure Time of Disposition: 00:50 Condition: Good - My Orders Last 24 Hours: My Active Orders 10/11/18 00:48 Communication Order [RC] STAT 10/11/18 00:49 CULTURE URINE [RM] Stat - Assessment/Plan Last 24 Hours: My Active Orders 10/11/18 00:48 Communication Order [RC] STAT 10/11/18 00:49 CULTURE URINE [RM] Stat
[2018-10-10] MEDS ORDERED: Iopamidol 755 Mg/ML 100 ML Bottle IVPUSH ONE (23:20)
[2018-10-10 23:35] LABS: CHLORIDE,CL 104 mmol/L (98-107); SODIUM,NA 142 mmol/L (136-145)
[2018-10-11] MEDS ORDERED: HYDROmorphone 1 MG/ML Syringe IVPUSH ONE (00:05)
--- NOTE | 2018-10-11 00:32 | CT ---
INDICATION: Right lower quadrant pain TECHNIQUE: CT abdomen and pelvis acquired with 100 cc Isovue 370 IV contrast. COMPARISON: None FINDINGS: Lower chest: Large hiatal hernia. Liver: Hepatic steatosis. Spleen: Unremarkable. Pancreas: Unremarkable. Gallbladder and bile ducts: S/p cholecystectomy. Adrenal glands: Unremarkable. Kidneys: Moderate left hydronephrosis secondary to a 6.6 mm stone in the proximal left ureter. No additional renal stone identified. GI tract: Unremarkable. Appendix is normal. Vascular structures: Unremarkable. Lymph nodes: Unremarkable. Miscellaneous: Unremarkable. No free air or significant free fluid. Pelvic Organs: Status post hysterectomy. Bones: Internal fixation hardware at L4-L5. IMPRESSION: IMPRESSION:Moderate left hydronephrosis secondary to a 6.6 mm stone in the proximal left ureter. No additional renal stone identified. Normal appendix. Large hiatal hernia. Hepatic steatosis. Status post cholecystectomy, hysterectomy, and hardware placement at L4-L5. Please note that all CT scans at this facility use dose modulation, iterative reconstruction, and/or weight-based dosing when appropriate to reduce radiation dose to as low as reasonably achievable. Dictated by Teresa Nichole MD @ Oct 11 2018 12:23AM Signed by Dr. Teresa Nichole @ Oct 11 2018 12:30AM
[2018-10-11] MEDS ORDERED: Tamsulosin 0.4 MG Cap.ER PO ONE (00:48)
[2018-10-11 01:06] VITALS: BP 141/75
== END 2018-10-11 01:12 | disposition home or self-care (01) ==
LOC: MW.ED 22:36
DX: N13.2 Hydronephrosis with renal and ureteral calculous obstruction (principal); K44.9 Diaphragmatic hernia without obstruction or gangrene; K21.9 Gastro-esophageal reflux disease without esophagitis; M06.9 Rheumatoid arthritis, unspecified; F17.210 Nicotine dependence, cigarettes, uncomplicated; Z88.0 Allergy status to penicillin; Z79.899 Other long term (current) drug therapy; Z90.49 Acquired absence of other specified parts of digestive tract; Z90.710 Acquired absence of both cervix and uterus; Z86.718 Personal history of other venous thrombosis and embolism; Z98.51 Tubal ligation status
CPT/HCPCS: 36415; 74177; 80053; 81001; 83690; 85025; 87086; 93005; 96361; 96374; 96375; 99284; A9270; J1170; J1885; J2405; J7040; Q9967; J2270

== ENCOUNTER 2018-10-21 09:50 | Day surgery (SDC) | payer BC, OTHER ==
[~2018-10-21 09:50] MED LIST changes: -Betamethasone Acetate/Betamethasone Sod Phosphate 30 MG/5 ML MDV ONE; +Glycopyrrolate 0.2 MG/ML SDV ONE; -Iopamidol 200-M 10 ML vial ITHECAL ONE; +Ketorolac 30 MG/ML SDV ONE; +Lactated Ringers 1,000 ML IV SCH; +Ondansetron 4 MG/2 ML SDV ONE; +Phenylephrine/Normal Saline 100 MCG/ML 10 ML Syringe ONE; +Propofol 200 MG/20 ML SDV ONE; -Ropivacaine 0.5% 5 MG/ML 30 ML SDV ONE; +Sodium Chloride 0.9% 10 ML SDV IV PRN; +Sodium Chloride 0.9% 10 ML Syringe FLUSH PRN; +Sodium Chloride 0.9% 2.5 ML Syringe FLUSH PRN; +fentaNYL 100 MCG/2 ML SDV ONE
--- NOTE | 2018-10-21 10:41 | PCM.PREANE ---
Preanesthetic Assessment - Anesthesia/Transfusion/Family Hx Anesthesia History: Prior Anesthesia Reaction Other Type of Anesthesia Reaction Comment: Increased liver enzymes after back surgery Family History of Anesthesia Reaction: No Transfusion History: No Prior Transfusion(s) Intubation History: Unknown - Review of Systems General: No Symptoms Pulmonary: No Symptoms Cardiovascular: No Symptoms Gastrointestinal: Abdominal Pain Neurological: No Symptoms Other: Reports: None - Physical Assessment O2 Sat by Pulse Oximetry: 92 Respiratory Rate: 16 Vital Signs: Last Vital Signs Temp 36.1 C 10/21/18 10:07 Pulse 95 10/21/18 10:07 Resp 16 10/21/18 10:07 BP 102/84 10/21/18 10:07 Pulse Ox 92 L 10/21/18 10:07 Height: 5 ft 6 in Weight: 72.575 kg ASA Class: 2 Mental Status: Alert & Oriented x3 Airway Class: Mallampati = 2 Dentition: Reports: Normal Dentition Thyro-Mental Finger Breadths: 2 Mouth Opening Finger Breadths: 3 ROM/Head Extension: Full Lungs: Clear to Auscultation, Normal Respiratory Effort Cardiovascular: Regular Rate, Regular Rhythm - Allergies Allergies/Adverse Reactions: Allergies Allergy/AdvReac Type Severity Reaction Status Date / Time Penicillins Allergy Rash Verified 10/20/18 15:14 - Blood Blood Available: No - Anesthesia Plan Pre-Op Medication Ordered: None - Acknowledgements Anesthesia Type Planned: General Anesthesia Pt an Appropriate Candidate for the Planned Anesthesia: Yes Alternatives and Risks of Anesthesia Discussed w Pt/Guardian: Yes Pt/Guardian Understands and Agrees with Anesthesia Plan: Yes PreAnesthesia Questionnaire HEENT History: Reports: Other (See Below) Other HEENT History: wears contacts, has upper partial removable denture Cardiovascular History: Reports: Blood Clots/VTE/DVT Other Cardiovascular History: 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, no anticoagulant therapy Respiratory History: Reports: COPD, SOB (can't walk 2 blocks without SOB) Other Respiratory History: has not been diagnosed with COPD but says she thinks she has it Gastrointestinal History: Reports: GERD, Hiatal Hernia Other Gastrointestinal History: 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, cleared now Genitourinary History: Reports: Renal Calculus Other OB/BYN History: Pt still has both ovaries Musculoskeletal History: Reports: Back Pain, Chronic, Fracture Other Musculoskeletal History: hx of fx ankle and fingers Neurological History: Reports: Concussion Other Neuro History: hx of motion sickness and restless leg syndrome Psychiatric History: Reports: Anxiety Immunologic History: Reports: None Oncologic (Cancer) History: Reports: None - Infectious Disease History Infectious Disease History: Reports: Chicken Pox, Measles, Scarlet Fever - Past Surgical History Head Surgeries/Procedures: Reports: None Cardiovascular Surgical History: Reports: Other (See Below) (surgical treatment of DVT- did not work) GI Surgical History: Reports: Cholecystectomy, Colonoscopy Female Surgical History: Reports: Other (See Below) ([place] [employer] [facility]) Neurological Surgical History: Reports: Laminectomy, Lumbar Spine Musculoskeletal Surgical History: Reports: None - SUBSTANCE USE Smoking Status *Q: Current Every Day Smoker (1 ppd) Tobacco Use Within Last Twelve Months: Cigarettes Recreational Drug Use History: No - HOME MEDS Home Medications: Home Meds Omeprazole 20 mg PO DAILY 10/10/18 [History] Venlafaxine HCl [Venlafaxine ER] 75 mg PO DAILY 10/10/18 [History] Tamsulosin [Flomax] 0.4 mg PO DAILY 10/20/18 [History] oxyCODONE HCl/Acetaminophen [Oxycodone-Acetaminophen 5-325] 1 tab PO Q4H PRN [History] - CURRENT (IN HOUSE) MEDS Current Meds: Current Medications Lactated Ringer's (Ringers, Lactated) 1,000 mls @ 100 mls/hr IV ASDIRECTED RICK Sodium Chloride (Saline Flush) 10 ml FLUSH ASDIRECTED PRN PRN Reason: Keep Vein Open Sodium Chloride (Saline Flush) 2.5 ml FLUSH ASDIRECTED PRN PRN Reason: Keep Vein Open Sodium Chloride (Normal Saline) 10 ml IV ASDIRECTED PRN PRN Reason: IV Use Discontinued Medications Fentanyl (Sublimaze) Confirm Administered Dose 100 mcg .ROUTE .STK-MED ONE Stop: 10/21/18 07:36 Glycopyrrolate (Robinul) Confirm Administered Dose 0.2 mg .ROUTE .STK-MED ONE Stop: 10/21/18 07:34 Ketorolac Tromethamine (Toradol) Confirm Administered Dose 30 mg .ROUTE .STK- MED ONE Stop: 10/21/18 07:34 Lidocaine (Xylocaine-Mpf 2%) Confirm Administered Dose 5 ml .ROUTE .STK-MED ONE Stop: 10/21/18 07:34 Ondansetron HCl (Zofran) Confirm Administered Dose 4 mg .ROUTE .STK-MED ONE Stop: 10/21/18 07:34 Phenylephrine HCl (Phenylephrine In Ns 100 Mcg/Ml) Confirm Administered Dose 1 mg .ROUTE .STK-MED ONE Stop: 10/21/18 07:42 Propofol (Diprivan 20 Ml) Confirm Administered Dose 200 mg .ROUTE .STK-MED ONE Stop: 10/21/18 07:36
[2018-10-21] MEDS ORDERED: Lidocaine 2% 5 ML SDV ONE (11:01)
[2018-10-21] MEDS ORDERED: Midazolam 1 MG/ML 2 ML SDV ONE (11:01)
[2018-10-21] MEDS ORDERED: fentaNYL 250 MCG/5 ML SDV ONE (11:01)
[2018-10-21] MEDS ORDERED: Ondansetron 4 MG/2 ML SDV ONE (11:01)
[2018-10-21] MEDS ORDERED: Propofol 200 MG/20 ML SDV ONE (11:01)
[2018-10-21] MEDS ORDERED: Phenylephrine/Normal Saline 100 MCG/ML 10 ML Syringe ONE (11:33)
[2018-10-21] MEDS ORDERED: Glycopyrrolate 0.2 MG/ML SDV ONE ×2 (11:34→11:40)
[2018-10-21] MEDS ORDERED: ePHEDrine 50 MG/ML SDV ONE (11:34)
[2018-10-21] MEDS ORDERED: Ciprofloxacin in D5W 200 ML ONE (11:35)
[2018-10-21] MEDS ORDERED: Labetalol 100 MG/20 ML MDV ONE (12:15)
[2018-10-21] MEDS ORDERED: Acetaminophen/oxyCODONE 325-5 MG Tab PO PRN (12:47)
--- NOTE | 2018-10-21 13:07 | OR ---
SURGEON: Lenny Jaramillo M.D. DATE OF PROCEDURE: 10/21/2018 PREOPERATIVE DIAGNOSIS: 1.5 cm left upper ureteral stone. POSTOPERATIVE DIAGNOSIS: 1.5 cm left upper ureteral stone. OPERATION: Extracorporeal shock wave lithotripsy plus cystoscopy and double-J stent placement. DESCRIPTION OF PROCEDURE: The patient was given general anesthesia. She is on the lithotripsy table. The position of the patient was adjusted, so the stone could be treated and eventually receiving a total of 3000 shocks monitoring the stone as we went along the stone, density was medium, so was not possible to see all potential pieces of the stone. Once the stone was broken up, it appeared to have broken up satisfactorily at the end. With that done because of the volume of the stone inside, I put a double-J stent in and there was a lumen. I was surprised to find resistance at the UPJ, so I suspect sizable piece of the stone has migrated up into the UPJ and has created an obstacle. Eventually, I was able to get a Glidewire alongside that into the renal pelvis over which a 6-Portuguese 26 cm double-J stent was placed. The position of that was confirmed with fluoroscopy. The bladder was emptied and the patient was moved to recovery room in good condition. PLAN: I will leave the stent in for 2 weeks. I will see her get a KUB and see what is left and go from there. VISHAL / STACY /[id number]
[2018-10-21] MEDS ORDERED: Acetaminophen/HYDROcodone 325-10 MG Tab PO ONE (13:57)
[2018-10-21 14:01] VITALS: BP 162/80
[2018-10-22] MEDS ORDERED: Omeprazole 20 MG Cap.CR PO SCH (09:00)
[2018-10-22] MEDS ORDERED: Tamsulosin 0.4 MG Cap.ER PO SCH (09:00)
[2018-10-22] MEDS ORDERED: Venlafaxine 75 MG Cap.ER PO SCH (09:00)
== END 2018-10-21 14:35 | disposition home or self-care (01) ==
LOC: MW.SDS 09:50
PROVIDERS: ATTEND Urology
DX: N20.1 Calculus of ureter (principal); J44.9 Chronic obstructive pulmonary disease, unspecified; K21.9 Gastro-esophageal reflux disease without esophagitis; F17.210 Nicotine dependence, cigarettes, uncomplicated; F41.9 Anxiety disorder, unspecified; Z88.0 Allergy status to penicillin; Z79.1 Long term (current) use of non-steroidal anti-inflammatories (NSAID); Z79.899 Other long term (current) drug therapy
CPT/HCPCS: 50590; 52332; A9270; J0744; J2001; J2250; J2370; J2405; J2704; J3010; J3490; J7120; C1769; C2625; J1885

== ENCOUNTER 2019-05-10 12:08 | Day surgery (SDC) | payer BC, OTHER ==
[2019-05-10] MEDS ORDERED: Lidocaine 2% 5 ML SDV INJECT ONE (13:30)
[2019-05-10] MEDS ORDERED: Betamethasone Acetate/Betamethasone Sod Phosphate 30 MG/5 ML MDV EPIDUR ONE (13:30)
[2019-05-10] MEDS ORDERED: Ropivacaine 0.5% 5 MG/ML 30 ML SDV INJECT ONE (13:30)
[2019-05-10] MEDS ORDERED: Iopamidol 200-M 10 ML vial ITHECAL ONE (13:30)
--- NOTE | 2019-05-10 20:11 | OR ---
SURGEON: Savanah Claire D.O. DATE OF PROCEDURE: 05/10/2019 PRIMARY SURGEON: Savanah Claire D.O. ASSISTANTS: OR staff present: 1. Sinai Ortiz RN. 2. Briana Ohara RN. 3. Ghada Virk RN. 4. Castillo Bansal RT. WOUND CLASS: I. PREOPERATIVE DIAGNOSES: 1. Failed back surgery syndrome. 2. Bilateral L5-S1 facet syndrome. POSTOPERATIVE DIAGNOSES: 1. Failed back surgery syndrome. 2. Bilateral L5-S1 facet syndrome. PROCEDURES PERFORMED: 1. Left L5-S1 facet joint injection. 2. Right L5-S1 facet joint injection. 3. Fluoroscopic guidance for needle placement. 4. Local with oral Valium for sedation. SCREENING QUESTIONS: The patient answered "No" to all the following questions: 1. Are you allergic to iodine, Betadine or latex? 2. Do you have a bleeding disorder? 3. Are you on anti-inflammatories or blood thinners? 4. Do you have any current local or systemic infections? MEDICAL NECESSITY: This is a patient with chronic low back pain who comes in for the above diagnostic procedure. This procedure is being performed in accordance with national guidelines written by the [employer]; please see medical necessity note in chart. DESCRIPTION OF PROCEDURE: The patient had the procedure thoroughly explained including risks, benefits and alternatives. Consent was signed in my clinic indicating understanding and willingness to proceed. The patient presented to [facility] and was escorted to the dressing room to disrobe and change into a hospital gown. Preoperative history and screening were performed by my nurse. Vital signs were taken and stable. The patient reported that Valium 10 milligrams was taken prior to the procedure. The patient was brought back to the procedure room and placed in the prone position on the procedure room table. A pillow was placed under the abdomen in order to flatten the lumbar lordosis. The back was prepped with ChloraPrep and sterilely draped. All personnel in the procedure room were dressed in appropriate attire including surgical scrubs, head and shoe covers. This was to ensure sterility while in the treatment room. During the time fluoroscopy was in use all personnel in the operating room wore lead gillette with thyroid collars. Sterile technique was used during the procedure. The fluoroscope was positioned to provide a right oblique view. Then the right L3 medial branch block was begun by anesthetizing the skin and soft tissues with 2 cubic centimeters of 2% Preservative-Free Lidocaine with a 25-gauge 1.5 inch needle. There were no signs of infection at the site of needle skin insertions. Using fluoroscopic guidance a sterile 22-gauge 3.5 inch spinal needle was positioned at the junction of the transverse process with the superior articular process of the L4 vertebral body. Precise needle placement was confirmed by fluoroscopy and 0.2 cubic centimeters of IsoVue-200 contrast dye which was injected through microbore tubing under live fluoroscopy and showed no intravascular flow pattern and adequate flow over the target L3 medial branch. Then 0.5 cubic centimeters of 0.5% Ropivacaine Preservative-Free was injected slowly without complications after negative aspiration. Then the fluoroscope was positioned to provide a right oblique view for the right L4-5 facet injection. This was begun by anesthetizing the skin and soft tissues. The fluoroscope was positioned and a sterile 22-gauge 3.5 inch needle was placed at the junction of the "ear of the rosetta dog" for the facet block. Precise needle placement was confirmed by fluoroscopy. Then 0.2 cubic centimeters of IsoVue-200 contrast dye was injected through microbore tubing under live fluoroscopy and showed no intravascular flow pattern and adequate flow over the target medial branch. After negative aspiration, a mixture of celestone and 0.5 cubic centimeters of 0.5% Ropivacaine was injected without complications. Then the procedure was repeated as above on the left for the left L4-5 facet joint injection without complications. The fluoroscope was positioned to provide a right L5-S1 facet injcetion . This was begun by anesthetizing the skin and soft tissues over the right facet joint at the "ear of the rosetta dog". Then using fluoroscopic guidance, a sterile 22- gauge 3.5 inch spinal needle was positioned for the facet injection. Precise needle placement was confirmed by fluoroscopy in AP and oblique views, and 0.2 cubic centimeters of IsoVue-200 contrast dye was injected through microbore tubing under live fluoroscopy and showed no intravascular flow pattern and adequate flow over the target . After negative aspiration,a mixture of celestone and 0.5 cubic centimeters of 0.5% Ropivacaine was injected. No complications were noted. Then attention was turned to the left side for the left L5-S1 facet joint injection as above. The procedure was well tolerated and vital signs were stable during and after the procedure. The staff escorted the patient to the recovery area. The patient was given both oral and written discharge and followup instructions. The patient will follow up with a pain diary which will be evaluated over this evening doing things that would normally cause pain. We will evaluate the efficacy of the diagnostic lumbar medial branch blocks as the patient will follow up in the clinic the next day. The patient was given both oral and written discharge and followup instructions. The patient voiced understanding including understanding of those signs and symptoms that would require emergency care and knows how to contact the office if there are any questions or concerns in the meantime. PREOPERATIVE PAIN: 5/10. POSTOPERATIVE PAIN: 0/10. FOLLOWUP: In the Pain Clinic in 3 weeks. SHIRLEY / STACY /[id number] YESSENIA
== END 2019-05-10 14:38 ==
LOC: MW.SDS 12:08
PROVIDERS: ATTEND Anesthesiology
DX: G89.4 Chronic pain syndrome (principal); M96.1 Postlaminectomy syndrome, not elsewhere classified; M51.16 Intervertebral disc disorders with radiculopathy, lumbar region; M47.26 Other spondylosis with radiculopathy, lumbar region; M48.061 Spinal stenosis, lumbar region without neurogenic claudication; M47.817 Spondylosis without myelopathy or radiculopathy, lumbosacral region; M79.18 Myalgia, other site; K21.9 Gastro-esophageal reflux disease without esophagitis; F41.9 Anxiety disorder, unspecified; F17.210 Nicotine dependence, cigarettes, uncomplicated; Z98.1 Arthrodesis status; Z88.0 Allergy status to penicillin; Z79.899 Other long term (current) drug therapy; Z79.1 Long term (current) use of non-steroidal anti-inflammatories (NSAID)
CPT/HCPCS: 64483; 64484; J0702; 64493-50